=== PATIENT | female | born 1980 | race Caucasian/White ===

== ENCOUNTER 2018-06-01 01:34 | Emergency (ER) | payer OTHER ==
[~2018-06-01] VITALS: Ht 175.3 cm; Wt 90.7 kg
[~2018-06-01 01:34] MED LIST: CLONAZEPAM 1 MG1 M1 PO; DOXYCYCLINE 10100 MG PO; FLEXERIL PO; GARAMYCIN5 M1 OP; IBUPROFEN 600600 M1 PO; IBUPROFEN 800800 M1 PO; IBUPROFEN 800800 MG PO; KEFLEX500 MG PO; NOHOMEMEDICATIONS; NORCO 5-325 TA1 EACH PO; NORFLEX100 MG PO; PENICILLIN VK500 M1 PO; PERCOCET 5-3251 EACH PO; TRAMADOL 50 MG50 MG; TRAMADOL 50 MG50 MG PO
[2018-06-01] MEDS ORDERED: TESSALON PERLE100 M1 PO (02:29)
[2018-06-01] MEDS ORDERED: VENTOLIN HFA 1818 GM INH (02:29)
[2018-06-01] MEDS ORDERED: PREDNISONE 20 M20 MG PO (02:29)
[2018-06-01] MEDS ORDERED: AUGMENTIN 500-1 EACH PO (02:29)
[2018-06-01 03:10] VITALS: BP 117/96
== END 2018-06-01 03:11 | disposition home or self-care (01) ==
LOC: ER 01:34
DX: J20.9 Acute bronchitis, unspecified (principal); F17.210 Nicotine dependence, cigarettes, uncomplicated; Z88.2 Allergy status to sulfonamides

== ENCOUNTER 2019-09-01 07:55 | Emergency (ER) | payer OTHER ==
[~2019-09-01] VITALS: Ht 175.3 cm; Wt 99.8 kg
[2019-09-01 07:55] VITALS: BP 176/105
[~2019-09-01 07:55] MED LIST changes: +AUGMENTIN 500-1 EACH PO; +PREDNISONE 20 M20 MG PO; +TESSALON PERLE100 M1 PO; +VENTOLIN HFA 1818 GM INH
[2019-09-01] MEDS ORDERED: DEXAMETHASONE 44 M1 PO (09:20)
[2019-09-01] MEDS ORDERED: TESSALON PERLE100 M1 PO (09:20)
[2019-09-01] MEDS ORDERED: PROAIR HFA8.5 GM INH (09:20)
== END 2019-09-01 09:32 | disposition home or self-care (01) ==
LOC: ER 07:55
DX: J45.901 Unspecified asthma with (acute) exacerbation (principal); J04.0 Acute laryngitis; F17.210 Nicotine dependence, cigarettes, uncomplicated; Z88.2 Allergy status to sulfonamides

== ENCOUNTER 2019-12-25 11:39 | Emergency (ER) | payer OTHER ==
[~2019-12-25] VITALS: Ht 175.3 cm; Wt 99.8 kg
[~2019-12-25 11:39] MED LIST changes: +DEXAMETHASONE 44 M1 PO; +PROAIR HFA8.5 GM INH
[2019-12-25 12:16] LABS: URINE BILIRUBIN NEGATIVE (Negative); URINE BLOOD NEGATIVE (Negative); URINE CLARITY CLEAR; URINE COLOR YELLOW; URINE GLUCOSE-RANDOM* NEGATIVE (Negative); URINE KETONES NEGATIVE (Negative); URINE LEUKOCYTES-REFLEX TRACE (Negative); URINE PROTEIN (DIPSTICK) NEGATIVE (Negative); URINE UROBILINOGEN 0.2 E.U./dl (0.2-1.0)
[2019-12-25 12:17] LABS: URINE NITRITE-REFLEX POSITIVE (Negative)
[2019-12-25 12:24] LABS: AMORPHOUS URATES Few /LPF (None Seen); BACTERIA-REFLEX >30 Many /HPF (None Seen); MUCUS None Seen strn/LPF (None Seen); SQUAMOUS None Seen /LPF (0-3); URINE WBC-REFLEX 6-15 Few /HPF (0-5)
[2019-12-25 12:41] LABS: BASOPHILS 0.8 % (0.0-2.0); EOSINOPHILS 1.3 % (0.0-3.0); HEMATOCRIT 38.6 % (37.0-47.0); HEMOGLOBIN 13.1 gm/dL (12.0-15.0); LYMPHOCYTES 23.5 % (24.0-44.0); MCH 29.4 pg (26.0-34.0); MCHC 33.8 g/dL (28.0-37.0); MCV 86.9 fL (80.0-100.0); MONOCYTES 6.1 % (1.0-8.0); PLATELET COUNT 401 thou/uL (150-400); POLYS 68.3 % (36.0-66.0); RBC 4.44 mil/uL (4.20-5.00); RDW 13.8 % (10.5-14.5); WBC 11.7 thou/uL (4.0-11.0)
[2019-12-25 12:56] LABS: CALCIUM 8.3 mg/dL (8.5-10.1); CREATININE 0.6 mg/dL (0.6-1.0); POTASSIUM 3.9 mmol/L (3.5-5.1)
[2019-12-25 13:02] LABS: TOTAL BILIRUBIN 0.3 mg/dL (<0.1-1.0); TOTAL PROTEIN 6.6 g/dL (6.4-8.2)
[2019-12-25] MEDS ORDERED: LEVAQUIN 750 M750 MG PO (14:12)
[2019-12-25] MEDS ORDERED: NORCO 5-325 TA1 EAC1 PO (14:12)
[2019-12-25 14:32] VITALS: BP 131/92
== END 2019-12-25 14:33 | disposition home or self-care (01) ==
LOC: ER 11:39
PROVIDERS: Physician Assistant
DX: N12 Tubulo-interstitial nephritis, not specified as acute or chronic (principal); N39.0 Urinary tract infection, site not specified; L98.9 Disorder of the skin and subcutaneous tissue, unspecified; J45.909 Unspecified asthma, uncomplicated; F17.210 Nicotine dependence, cigarettes, uncomplicated; Z88.2 Allergy status to sulfonamides

== ENCOUNTER 2020-12-27 16:57 | Emergency (ER) | payer OTHER ==
[~2020-12-27] VITALS: Ht 175.3 cm; Wt 112.0 kg
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
[~2020-12-27 16:57] MED LIST changes: +LEVAQUIN 750 M750 MG PO; +NORCO 5-325 TA1 EAC1 PO
[2020-12-27 16:58] VITALS: BP 150/102
[2020-12-27 17:26] LABS: ABSOLUTE NEUTROPHILS 10.1 thou/uL (1.4-8.2); BASOPHILS 1.1 % (0.0-2.0); HEMATOCRIT 40.2 % (37.0-47.0); HEMOGLOBIN 13.4 gm/dL (12.0-15.0); LYMPHOCYTES 17.9 % (24.0-44.0); MCH 29.3 pg (26.0-34.0); MCHC 33.3 g/dL (28.0-37.0); MCV 87.9 fL (80.0-100.0); MONOCYTES 7.4 % (1.0-8.0); PLATELET COUNT 388 thou/uL (150-400); POLYS 71.6 % (36.0-66.0); RBC 4.57 mil/uL (4.20-5.00); RDW 13.5 % (10.5-14.5); WBC 14.2 thou/uL (4.0-11.0)
[2020-12-27 17:32] LABS: ANION GAP 8 mmol/L (7-16); BUN 13 mg/dL (7-18); CALCIUM 8.9 mg/dL (8.5-10.1); CHLORIDE 107 mmol/L (98-107); CO2 26 mmol/L (21-32); CREATININE 0.9 mg/dL (0.6-1.0); GLUCOSE 108 mg/dL (74-106); POTASSIUM 4.2 mmol/L (3.5-5.1); SODIUM 141 mmol/L (136-145)
[2020-12-27 17:41] LABS: ALBUMIN 3.7 g/dL (3.4-5.0); SGOT 21 U/L (15-37); SGPT 21 U/L (14-59); TOTAL BILIRUBIN 0.4 mg/dL (0.2-1.0); TOTAL PROTEIN 7.5 g/dL (6.4-8.2); TROPONIN-I <0.06 ng/mL (<0.06)
--- NOTE | 2020-12-28 07:06 | EKG ---
[address] [place] [address] ELECTROCARDIOGRAM REPORT Name: DINORAH MCCRACKEN Room #: DEP Elisabeth#: [id number] Admission: 12/27/20 Attend Phys: Discharge: 12/27/20 Date of : 84 Report #: [id number] [facility] ED Test Date: 2020-12-27 Test Time: 17:02:51 Pat Name: DINORAH MCCRACKEN Department: Room: Gender: F [employer] Sergeant: Sandip CALLAWAY : 1980 Requested By: Jitendra Mccarthy Order Number: [id number] MD: Isac Staton Measurements Intervals [place] Rate: 98 P: 78 [place]: 134 QRS: 72 QRSD: 100 T: 75 QT: 363 QTc: 464 Interpretive Statements Sinus rhythm Right atrial enlargement No previous ECG available for comparison Electronically Signed On 12-28-2020 7:06:20 CDT by Isac Staton [email or web address] <ELECTRONICALLY SIGNED> By: Isac Staton MD, [facility] 12/28/20 [id number] Isac Staton MD, FACC /EPI
== END 2020-12-27 17:51 | disposition left against medical advice (07) ==
LOC: ER 16:57
PROVIDERS: Physician Assistant
DX: R07.89 Other chest pain (principal); F15.10 Other stimulant abuse, uncomplicated; J45.909 Unspecified asthma, uncomplicated; F17.210 Nicotine dependence, cigarettes, uncomplicated; Z79.899 Other long term (current) drug therapy; Z88.2 Allergy status to sulfonamides; Z91.018 Allergy to other foods